=== PATIENT | male | born 1980 | race Two or more races ===

== ENCOUNTER 2017-04-21 10:42 | Emergency (ER) | payer SELFPAY ==
[2017-04-21 10:46] VITALS: BMI 25.7
[2017-04-21 10:49] VITALS: RESP 16; TEMP 98; O2SAT 100
--- NOTE | 2017-04-21 11:52 | ED PDOC ---
HPI: General Adult Time Seen by Provider: 04/21/17 11:04 Chief Complaint (Nursing): Abnormal Skin Integrity Chief Complaint (Provider): facial injury History Per: Patient Additional Complaint(s): 37-year-old male presents to emergency department for evaluation of laceration to face. She was at the gym when he fell hitting his face against a wall. Patient sustained abrasions to both forearms and a laceration to his nasal bridge as well as left side of forehead. Patient denies loss of consciousness. He denies epistaxis. He denies any headache, dizziness, nausea or vomiting upon arrival, no vision changes. Patient is not sure of last tetanus. Past Medical History Reviewed: Historical Data, Nursing Documentation, Vital Signs Vital Signs: Last Vital Signs Temp 98.0 F 04/21/17 10:48 Pulse 101 H 04/21/17 10:48 Resp 16 04/21/17 10:48 BP 142/66 04/21/17 10:48 Pulse Ox 100 04/21/17 11:52 - Medical History PMH: No Chronic Diseases - Family History Family History: States: No Known Family Hx - Living Arrangements Living Arrangements: With Family - Social History Current smoker - smoking cessation education provided: No Alcohol: Social Drugs: Cannabis - Immunization History Hx Tetanus Toxoid Vaccination: No (not sure of last booster) - Allergies Allergies/Adverse Reactions: Allergies Allergy/AdvReac Type Severity Reaction Status Date / Time No Known Allergies Allergy Verified 04/21/17 10:54 Review of Systems ROS Statement: Except As Marked, All Systems Reviewed And Found Negative Skin: Positive for: Other (facial laceration) Neurological: Positive for: Other (head injury with no LOC) Physical Exam - Reviewed Nursing Documentation Reviewed: Yes Vital Signs Reviewed: Yes - Physical Exam Appears: Positive for: Well, Non-toxic, No Acute Distress Head Exam: Negative for: ATRAUMATIC (1.5 cm superficial vertical laceration noted to left forehead, minimal active bleeding, additional 1 cm laceration noted to proximal nasal bridge with minimal active bleeding) Eye Exam: Positive for: Normal appearance, EOMI, PERRL ENT: Positive for: Other (Lateral nares are patent, no epistaxis, no septal hematoma) Neck: Positive for: Normal, Painless ROM Cardiovascular/Chest: Positive for: Regular Rate, Rhythm Respiratory: Positive for: Normal Breath Sounds Back: Positive for: Normal Inspection Extremity: Positive for: Normal ROM Neurologic/Psych: Positive for: Alert, Oriented - ECG O2 Sat by Pulse Oximetry: 100 Pulse Ox Interpretation: Normal Medical Decision Making Medical Decision Makin37 year old with facial injury Plan: Adacel PO tylenol Patient prefers glue repair vs sutures. He declined plastic surgery consult and agrees to wound repair by brief writer. Patient is aware of scar potential. Procedure Note: Lacerations cleansed with normal saline, Dermabond was used to repair wounds, good wound approximation was achieved, closure for both lacerations was reinforced using Steri-Strips, neurovascular intact status post placement. Procedure tolerated well by patient with no complications. Patient was given detailed wound care instructions. Advised Tylenol for pain. Disposition - Clinical Impression Clinical Impression: Head injury, Facial laceration, Requires a booster tetanus - Patient ED Disposition Is Patient to be Admitted: No Counseled Patient/Family Regarding: Diagnosis, Need For Followup - Disposition Referrals: Zeb Martinez MD [Staff Provider] - Tami Soni MD [Staff Provider] - Disposition: Routine/Home Disposition Time: 12:14 Condition: STABLE Additional Instructions: KEEP WOUNDS CLEAN AND DRY. ALLOW STERI-STRIPS AND EXCESS GLUE TO FLAKE OFF ON THEIR OWN. TYLENOL NEEDED FOR PAIN. FOLLOW UP WITH PRIMARY CARE DOCTOR OR PLASTIC SURGEON. Instructions: Facial Laceration (ED), Diphtheria/Acellular Pertussis/Tetanus Vaccine (DTaP) (By injection), Head Injury (ED) Forms: Intense (E[place]ian)
[2017-04-21 12:33] VITALS: BP 125/80; PULSE 89
== END 2017-04-21 12:24 | disposition home or self-care (01) ==
LOC: H.ER 10:42
DX: S09.90XA Unspecified injury of head, initial encounter (principal); S01.81XA Laceration without foreign body of other part of head, initial encounter; S50.811A Abrasion of right forearm, initial encounter; S50.812A Abrasion of left forearm, initial encounter; W19.XXXA Unspecified fall, initial encounter; Y92.89 Other specified places as the place of occurrence of the external cause